=== PATIENT | female | born 1995 | race Caucasian/White ===

== ENCOUNTER 2017-06-09 09:57 | Outpatient (CLI) | payer OTHER | END 2017-06-09 10:00 | LOC: LAB 09:57 | PROVIDERS: ATTEND Physician Assistant | DX: Z20.2 Contact with and (suspected) exposure to infections with a predominantly sexual mode of transmission (principal) | CPT/HCPCS: 36415; 86592; 86694; 86703; 86780; 86803; 87491; 87591 ==

== ENCOUNTER 2018-04-29 15:30 | Outpatient (CLI) | payer OTHER | END 2018-04-29 15:35 | LOC: LABRHC 15:30 | PROVIDERS: ATTEND Nurse Practitioner Family | DX: N89.8 Other specified noninflammatory disorders of vagina (principal) | CPT/HCPCS: 87491; 87591 ==